=== PATIENT | female | born 1970 | race Caucasian/White ===

== ENCOUNTER → 2018-01-12 | Outpatient (CLI) | payer MEDICARE, OTHER | END | disposition home or self-care (01) | LOC: PCVCCLINIC 15:44 | PROVIDERS: ATTEND Internal Medicine | DX: I95.9 Hypotension, unspecified (principal); E11.22 Type 2 diabetes mellitus with diabetic chronic kidney disease; R94.31 Abnormal electrocardiogram [ECG] [EKG]; E78.5 Hyperlipidemia, unspecified; N18.6 End stage renal disease; Z82.49 Family history of ischemic heart disease and other diseases of the circulatory system; E03.9 Hypothyroidism, unspecified; Z79.899 Other long term (current) drug therapy; Z88.8 Allergy status to other drugs, medicaments and biological substances | CPT/HCPCS: 80061; 93005; G0463 ==

== ENCOUNTER → 2018-01-16 | Outpatient (CLI) | payer MEDICARE, OTHER ==
--- NOTE | 2018-01-16 16:03 | PCVCIMAG ---
APPROVED REPORT Study performed: 01/16/2018 14:45:58 EXAM: Comprehensive 2D, Doppler, and color-flow Echocardiogram Patient Location: Echo lab Status: routine BSA: 2.22 HR: 93 bpmBP: 120/70 mmHg Rhythm: NSR Other Information Study Quality: Good Risk Factors: Cardiac Risk Factors: Hyperlipidemia, DM Indications ESRD R/O Effusion 2D Dimensions IVSd: 13.36 (7-11mm)LVOT Diam: 20.00 (18-24mm) LVDd: 46.48 mm PWd: 15.11 (7-11mm)Ascending Ao: 28.02 (22-36mm) LVDs: 23.91 (25-40mm) Left Atrium: 41.50 (27-40mm) Aortic Root: 28.48 mm LV Single Plane 4CH: 71.43 % LV Single Plane 2CH: 64.26 % Biplane EF: 69.3 % Volumes Left Atrial Volume (Systole) Single Plane 4CH: 58.17 mLSingle Plane 2CH: 57.01 mL LA ESV Index: 29.00 mL/m2 Aortic Valve AoV Peak Eddie.: 1.42 m/s AO Peak Gr.: 8.07 mmHgLVOT Max P.12 mmHg LVOT Max V: 1.01 m/s ARTHUR Vmax: 2.32 cm2 Mitral Valve E/A Ratio: 1.3 MV Decel. Time: 166.23 ms MV E Max Eddie.: 1.31 m/s MV A Eddie.: 0.99 m/s MV PHT: 48.21 ms IVRT: 65.74 ms TDI E/Lateral E': 8.19E/Medial E': 14.56 Medial E' Eddie.: 0.09 m/s Lateral E' Eddie.: 0.16 m/s Pulmonary Valve PV Peak Eddie.: 1.18 m/sPV Peak Gr.: 5.58 mmHg Pulmonary Vein P Vein S: 0.73 m/sP Vein A: 0.26 m/s P Vein D: 0.55 m/sP Vein A Dur.: 79.6 msec P Vein S/D Ratio: 1.33 Tricuspid Valve TR Peak Eddie.: 2.78 m/sRAP Estimate: 7.00 mmHg TR Peak Gr.: 30.81 mmHg PA Pressure: 38.00 mmHg Left Ventricle The left ventricle is normal size. There is normal LV segmental wall motion. Mild concentric left ventricular hypertrophy. Left ventricular systolic function is normal. The left ventricular ejection fraction is within the normal range. LVEF is 65-70%. Moderate diastolic dysfunction is present (pseudonormal filling). Right Ventricle The right ventricle is normal size. The right ventricular systolic function is normal. Atria The left atrium size is normal. The right atrium size is normal. Aortic Valve The aortic valve is normal in structure. No aortic regurgitation is present. There is no aortic valvular stenosis. Mitral Valve The mitral valve is normal in structure. Trace mitral regurgitation. No evidence of mitral valve stenosis. Tricuspid Valve The tricuspid valve is normal in structure. Trace tricuspid regurgitation. Pulmonary artery pressure is 38 mmHg. Pulmonic Valve The pulmonary valve is normal in structure. Trace pulmonic regurgitation. Great Vessels The aortic root is normal in size. IVC is normal in size and collapses >50% with inspiration. Pericardium There is no pericardial effusion. <Conclusion> Left ventricular systolic function is normal. There is normal LV segmental wall motion. LVEF 65-70%. The aortic valve is normal in structure. No aortic regurgitation or stenosis The mitral valve is normal in structure. Trace mitral regurgitation. Trace tricuspid regurgitation. Pulmonary artery pressure of 38 mmHg. There is no pericardial effusion.
== END | disposition home or self-care (01) ==
LOC: PCVCIMAG 13:00
PROVIDERS: ATTEND Internal Medicine
DX: E11.22 Type 2 diabetes mellitus with diabetic chronic kidney disease (principal); N18.6 End stage renal disease; E11.9 Type 2 diabetes mellitus without complications; Z82.49 Family history of ischemic heart disease and other diseases of the circulatory system
CPT/HCPCS: 93306